=== PATIENT | female | born 1960 | race Caucasian/White ===

== ENCOUNTER 2018-12-21 01:06 | Inpatient (IN) ==
--- NOTE | 2018-12-14 18:02 | EKG Report ---
Test Performed on : 12/14/2018 5:49:33 PM Test Reason : PAT Blood Pressure : / mmHG Vent. Rate : 065 BPM Atrial Rate : 065 BPM P-R Int : 160 ms QRS Dur : 088 ms QT Int : 392 ms P-R-T Axes : 022 018 040 degrees QTc Int : 407 ms Normal sinus rhythm. Normal ECG When compared with ECG of 27-OCT-2017 10:01, Nonspecific T wave abnormality no longer evident in Lateral leads Confirmed by Lc SCHWARTZ, Zev Mendoza ([id number]) on 12/16/2018 9:02:26 AM
[2018-12-14 18:11] LABS: URINE SOURCE CLEAN CATCH
[2018-12-14 18:15] LABS: BASO# 0.02 X1000 (0.0-0.2); BASO% 0.3 % (0.0-0.8); EOS# 0.13 X1000 (0.0-0.7); EOS% 1.9 % (0.0-10.0); HEMATOCRIT 41.5 % (37.0-47.0); LYMPH# 2.49 X1000 (1.2-3.4); LYMPH% 36.3 % (20.5-51.1); MCH 29.5 PG (27-31); MCHC 33.7 g/dL (33-37); MCV 87.4 FL (81-99); MONO# 0.41 X1000 (0.11-0.59); MPV 10.4 FL (7.4-10.4); NEUT# 3.81 X1000 (1.4-6.5); NEUT% 55.5 % (42.2-75.2); PLT 180 X1000 (130-400); RBC 4.75 XMIL (4.2-5.4); WBC 6.86 X1000 (4.8-10.8)
[2018-12-14 18:17] LABS: BILIRUBIN URINE NEGATIVE (NEGATIVE); BLOOD URINE NEGATIVE (NEGATIVE); COLOR YELLOW; GLUCOSE URINE NEGATIVE (NEGATIVE); KETONE URINE NEGATIVE (NEGATIVE); LEUKOCYTES URINE MODERATE (NEGATIVE); NITRITE URINE NEGATIVE (NEGATIVE); PROTEIN URINE NEGATIVE (NEGATIVE); SP GRAVITY URINE 1.005; TURBIDITY URINE CLEAR (CLEAR); UROBILINOGEN URINE NORMAL (NORMAL)
[2018-12-14 18:19] LABS: UR EPITHELIAL CELLS <10 /HPF (<10); URINE BACTERIA NEGATIVE /HPF; URINE RBC <10 /HPF (<10); URINE WBC <10 /HPF (<10)
[2018-12-14 18:24] LABS: AGAP 11; BUN 16 mg/dL (8-22); CALCIUM 9.3 mg/dL (8.8-10.2); CHLORIDE 103 mmol/L (98-107); COSMO 280; CREATININE 0.7 mg/dL (0.5-0.9); ESTIMATED GFR > 60; GLUCOSE 95 mg/dL (70-104); POTASSIUM 4.2 mmol/L (3.5-5.1); SODIUM 140 mmol/L (136-145); TCO2 26 mmol/L (25-35)
[2018-12-14 18:25] LABS: INR 0.88; PROTIME 12.7 Seconds (11.0-16.0)
[2018-12-14 18:26] LABS: PTT 26.2 Seconds (22.3-41.8)
[2018-12-21] MEDS ORDERED: COLACE ONE (06:10)
[2018-12-21] MEDS ORDERED: CELEBREX ONE (06:11)
[2018-12-21] MEDS ORDERED: LYRICA ONE (06:11)
[2018-12-21] MEDS ORDERED: PEPCID ONE (06:11)
[2018-12-21] MEDS ORDERED: LR 1,000 ML ONE (06:11)
[2018-12-21] MEDS ORDERED: REGLAN ONE (06:11)
[2018-12-21] MEDS ORDERED: KEFZOL 1 GM/D5W 1 GM/50 ML IVPB ONE (06:11)
[2018-12-21] MEDS ORDERED: FENTANYL ONE (06:35)
[2018-12-21] MEDS ORDERED: ROBINUL ONE ×2 (06:35→07:16)
[2018-12-21] MEDS ORDERED: ZOFRAN ONE (06:35)
[2018-12-21] MEDS ORDERED: DIPRIVAN 1% ONE (06:35)
[2018-12-21] MEDS ORDERED: XYLOCAINE-MPF 2% ONE (06:35)
[2018-12-21] MEDS ORDERED: DECADRON ONE ×2 (06:35→06:37)
[2018-12-21] MEDS ORDERED: OFIRMEV 1000 MG/ISOTONIC SOLN 1,000 MG/100 ML BOTTLE ONE (06:37)
[2018-12-21] MEDS ORDERED: TORADOL ONE (06:40)
[2018-12-21] MEDS ORDERED: DURAMORPH ONE (06:40)
[2018-12-21] MEDS ORDERED: CYKLOKAPRON 1,000 MG/NS 1,000 MG/100 ML IVPB ONE (06:41)
[2018-12-21] MEDS ORDERED: ZEMURON ONE (06:41)
[2018-12-21] MEDS ORDERED: SODIUM CHLORIDE 0.9% ONE (06:41)
[2018-12-21] MEDS ORDERED: MARCAINE 0.25% PF ONE (06:41)
[2018-12-21] MEDS ORDERED: EXPAREL 1.3% ONE (06:42)
[2018-12-21] MEDS ORDERED: NEOSPORIN G.U. IRRIGANT ONE (06:42)
[2018-12-21] MEDS ORDERED: VERSED ONE (06:53)
[2018-12-21] MEDS ORDERED: NEOSTIGMINE ONE (07:39)
[2018-12-21 08:03] LABS: URINE SOURCE CATH
[2018-12-21 08:04] LABS: UR EPITHELIAL CELLS <10 /HPF (<10); URINE BACTERIA NEGATIVE /HPF; URINE RBC <10 /HPF (<10); URINE WBC <10 /HPF (<10)
[2018-12-21 08:05] LABS: BILIRUBIN URINE NEGATIVE (NEGATIVE); BLOOD URINE NEGATIVE (NEGATIVE); COLOR YELLOW; GLUCOSE URINE NEGATIVE (NEGATIVE); KETONE URINE NEGATIVE (NEGATIVE); LEUKOCYTES URINE NEGATIVE (NEGATIVE); NITRITE URINE NEGATIVE (NEGATIVE); PH URINE 5.5; PROTEIN URINE NEGATIVE (NEGATIVE); SP GRAVITY URINE 1.019; TURBIDITY URINE CLEAR (CLEAR); UROBILINOGEN URINE NORMAL (NORMAL)
[2018-12-21] MEDS ORDERED: EPHEDRINE ONE (08:20)
[2018-12-21] MEDS ORDERED: NS 1,000 ML ONE (08:52)
[2018-12-21] MEDS: DILAUDID ONE ×2 (08:55→09:00)
--- NOTE | 2018-12-21 09:53 | OPERATIVE NOTE ---
PROCEDURE DATE: 12/21/2018 PREOPERATIVE DIAGNOSIS: Left glenohumeral arthritis with recurrent rotator cuff tear. POSTOPERATIVE DIAGNOSIS: Left glenohumeral arthritis with recurrent rotator cuff tear. PROCEDURE: Left reverse shoulder arthroplasty with DePuy Delta Xtend size 10 press-fit stem, a 38+ 3 humeral cup, a 38 Eccentric Glenosphere and a standard Metaglene. SURGEON: Don Messina MD. OPTOELECTRONIC TECHNICIAN: PAIGE Roca. SECOND VENTILATOR SPECIALIST: Hollis Vallecillo RN. ANESTHESIA: General. IV FLUIDS: 1200 mL of lactated Ringer. ESTIMATED BLOOD LOSS: 200 mL of lactated Ringer. COMPLICATIONS: None. INDICATION: The patient is a pleasant 58-year-old female, chronic history of pain and discomfort of the left shoulder. She is status post arthroscopic rotator cuff repair for a large rotator cuff tear approximately 7 months ago or so. She has continued pain and discomfort. Repeat MRI was obtained and revealed a recurrent rotator cuff tear with some retraction and some evidence of glenohumeral arthritis. Given patient's findings, recommendation to proceed with left reverse total shoulder arthroplasty was offered. Risks and benefits of surgery were explained, including the risks of anesthesia, , bleeding, infection, failure to relieve pain, postoperative stiffness, nerve injury, blood clots, and other imponderables. All questions answered. Patient and family wished to proceed with surgery. DETAILS OF OPERATION: Patient was taken to the operating room and placed supine on the operating table. Once adequate anesthesia was obtained, the patient was placed in a semi-[place]énez beach-chair position. The left shoulder was subsequently prepped and draped in the usual sterile fashion. A standard deltopectoral incision was made with a skin knife. Hemostasis was obtained using electrocautery. The deltopectoral interval was then developed. Retractors then placed. Retractors were then placed deep to the conjoint tendon. The subscapularis tendon was then identified and carefully incised approximately 1 cm medial to the insertion, the subscapularis tendon was released. A stay suture was placed medial in the medial aspect of the tendon. Retractors were then placed. Attention then turned to the superior aspect. The shoulder was then dislocated anteriorly. Attention then turned to the proximal humerus. A starting reamer was then passed. Sequential reaming was then conducted up to size 10. After this had been performed, an intramedullary guide with the proximal humeral cutting block was pinned in position. The humeral head was then resected. A protective disk was then placed. A rongeur was used to remove inferior osteophyte off the humeral head. Attention then turned to the glenoid where circumferential dissection was then performed. There was some tightness to the shoulder. Therefore, a few more millimeters of the proximal humerus was resected. After this had been performed, attention was turned back to the glenoid and finished deep dissection circumferentially. A guide was then placed on the glenoid and guide pin was then placed. Reaming was then conducted. After this had been performed, the central hole was dilated. The wound was copiously irrigated with antibiotic pulsatile lavage. A standard Metaglene was then impacted in position. Two locking screws and 2 nonlocking screws were placed and had good purchase. The wound was copiously irrigated once again. A 38 Eccentric Glenosphere was then placed with the eccentricity placed inferiorly. After this had been performed, attention was then turned to the proximal humerus. Intramedullary guide was then placed in position and the proximal humerus was reamed. The patient did have some indwelling anchors and some suture which was removed. The wound was copiously irrigated with antibiotic pulsatile lavage. A size 10 Delta Xtend press-fit stem was then impacted in position and had good fit. Trial cup size performed with 38+ 3 humeral cup, had excellent stability and range of motion. The trial cup was then removed. The wound was copiously irrigated once again. A 38 +3 humeral cup was then impacted. Shoulder was reduced and carried through range of motion. It had excellent stability and range of motion. Exparel was placed in the deep soft tissue. Irrigation was performed once again. A #2 FiberWire was used to repair the subscapularis tendon, it appeared be a good repair. The remaining portion of the Exparel was placed in deep soft tissue as well as the subcutaneous tissue. The wound was copiously once again. A 2-0 Vicryl was used to repair the subcutaneous tissue, followed by a running 2-0 Prolene. Benzoin and Steri-Strips were applied. Adaptic, sterile 4x4s, ABD pad, and tape was applied to the left shoulder followed by a shoulder immobilizer. All counts were correct. Patient tolerated the procedure well and was transferred to the recovery room in stable condition. cc: Don Messina MD
--- NOTE | 2018-12-21 10:24 | Diag Imaging Result Doc PS360 ---
EXAM: SHOULDER 1 VIEW LEFT - 12/21/2018 HISTORY: left TSA TECHNIQUE: Portable AP left shoulder one view COMPARISON: 02/10/2018. FINDINGS: There are postsurgical changes of recent total shoulder prosthesis placement. Alignment appears satisfactory. There are no complicating features identified. IMPRESSION: Satisfactory postoperative exam. Electronically signed by Vinayak Houser 12/21/2018 10:21 AM
[2018-12-21] MEDS ORDERED: OXY IR PO PRN (10:45)
[2018-12-21] MEDS ORDERED: MORPHINE IV PRN ×3 (10:45)
[2018-12-21] MEDS ORDERED: ZOFRAN PO PRN (10:45)
[2018-12-21] MEDS: NS 1,000 ML IV SCH ×2 (11:18→23:07)
[2018-12-21] MEDS ORDERED: CYKLOKAPRON 1,000 MG in NS 100 ML IV ONE (13:15)
[2018-12-21] MEDS ORDERED: NEURONTIN PO PRN (14:01)
[2018-12-21] MEDS: OXY IR PO PRN (15:10)
[2018-12-21] MEDS: KEFZOL 1 GM/D5W 1 GM/50 ML IVPB IV SCH ×2 (15:13→23:07)
[2018-12-21] MEDS ORDERED: LOPRESSOR PO SCH (21:00)
[2018-12-21] MEDS ORDERED: CELEXA PO SCH (21:00)
[2018-12-21] MEDS: PERIDEX MT SCH (23:07)
[2018-12-22] MEDS: OXY IR PO PRN ×2 (04:08→08:26)
[2018-12-22 06:19] LABS: HEMATOCRIT 32.7 % (37.0-47.0); HEMOGLOBIN 10.6 g/dL (12.0-16.0)
[2018-12-22 06:24] LABS: AGAP 11; BUN 10 mg/dL (8-22); CALCIUM 8.1 mg/dL (8.8-10.2); CHLORIDE 106 mmol/L (98-107); COSMO 280; CREATININE 0.6 mg/dL (0.5-0.9); ESTIMATED GFR > 60; GLUCOSE 130 mg/dL (70-104); POTASSIUM 3.8 mmol/L (3.5-5.1); SODIUM 140 mmol/L (136-145); TCO2 23 mmol/L (25-35)
[2018-12-22 08:07] VITALS: BP 97/46
[2018-12-22] MEDS: PERIDEX MT SCH (08:24)
--- NOTE | 2018-12-22 11:24 | ORTHOPAEDICS PROGRESS NOTE ---
DATE: 12/22/2018 SUBJECTIVE: The patient is a pleasant, 58-year-old female, who is 1 day status post left reverse total shoulder arthroplasty. She is currently resting comfortably. PHYSICAL EXAMINATION: The patient's left upper extremity dressing is intact. She is able to flex down her fingers. There is some mild paresthesia along the index finger and thumb. Compartments are soft. Good capillary refill distally. LABORATORY DATA: Her hemoglobin is 10.6, hematocrit is 32.7. IMPRESSION: Postoperative day #1 status post left reverse total shoulder arthroplasty. PLAN: At this point, will change her dressing. Will plan on discharging home after physical therapy. The patient will call the office to arrange for outpatient physical therapy. cc: Don Messina MD
== END 2018-12-22 09:41 | disposition home or self-care (01) | DRG 483 ==
LOC: SURHOLD 01:06 → 4N 08:12
PROVIDERS: ADMIT Orthopaedic Surgery Adult Reconstructive Orthopaedic Surgery; ATTEND Orthopaedic Surgery Adult Reconstructive Orthopaedic Surgery
CPT/HCPCS: 73020; 80048; 81001; 85014; 85018; 85025; 85610; 85730; 86850; 86900; 86901; 88305; 88311; 93005; 93010; 94761; 94799; 97110; 97116; 97162; 97530; A9270; C9290; J0131; J0690; J1100; J1170; J1885; J2250; J2274; J2275; J2405; J3010; J7030; J7120; Q9974; S0020